=== PATIENT | female | born 1990 | race Two or more races ===

== ENCOUNTER 2024-06-09 20:53 | Emergency (ER) | payer MEDICAID, OTHER ==
[~2024-06-09] VITALS: Ht 157.5 cm; Wt 99.3 kg
[2024-06-09] MEDS: cloNIDine HCL 0.1 MG TAB PO ONE ×2 (21:29→22:45)
[2024-06-09] MEDS: cloNIDine HCL 0.1 MG TAB ONE (22:45)
[2024-06-09 23:39] VITALS: BP 120/75; PULSE 76; RESP 16; TEMP 98.4; O2SAT 98
== END 2024-06-10 00:10 | disposition home or self-care (01) ==
LOC: ER 20:53
DX: I10 Essential (primary) hypertension (principal); R51.9 Headache, unspecified; Z91.199 Patient's noncompliance with other medical treatment and regimen due to unspecified reason
CPT/HCPCS: 93005